=== PATIENT | female | born 2000 | race Two or more races ===

== ENCOUNTER 2018-02-08 18:42 | Emergency (ER) | payer SELFPAY ==
[2018-02-08 21:21] VITALS: BP 124/68
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
== END 2018-02-08 21:45 | disposition home or self-care (01) ==
LOC: ED 18:42
DX: F43.25 Adjustment disorder with mixed disturbance of emotions and conduct (principal); F17.200 Nicotine dependence, unspecified, uncomplicated
CPT/HCPCS: 99285